=== PATIENT | female | born 1995 | race American Indian/Alaskan Native ===

== ENCOUNTER 2017-09-18 21:07 | Emergency (ER) | payer SELFPAY ==
[2017-09-18 21:16] VITALS: BP 122/82
== END 2017-09-19 02:33 | disposition left against medical advice (07) ==
LOC: ED 21:07
DX: S61.411A Laceration without foreign body of right hand, initial encounter (principal); Z53.21 Procedure and treatment not carried out due to patient leaving prior to being seen by health care provider; W45.8XXA Other foreign body or object entering through skin, initial encounter; Y93.89 Activity, other specified; Y99.8 Other external cause status; Y92.89 Other specified places as the place of occurrence of the external cause